=== PATIENT | male | born 1975 ===

== ENCOUNTER 2016-11-25 08:20 | Day surgery (SDC) | payer OTHER ==
[2016-11-20 16:09] VITALS: BMI 31.7
[2016-11-25] MEDS ORDERED: Lidocaine 1% Inj (20ml) ONE (09:03)
[2016-11-25] MEDS ORDERED: ceFAZolin IV 1 gm in Dextrose 1 GM/50 ML BAG IVPB ONE (09:03)
[2016-11-25] MEDS ORDERED: Lactated Ringer's 1,000 ML IV ONE (09:15)
[2016-11-25] MEDS ORDERED: Midazolam 2 MG/2 ML VIAL ONE (09:18)
[2016-11-25] MEDS ORDERED: Propofol 10 mg/ml Inj (20 ML) ONE ×2 (09:18→09:33)
[2016-11-25] MEDS ORDERED: Bupivacaine 0.5% Inj(30mL) ONE (09:19)
[2016-11-25] MEDS ORDERED: Bacitracin Ointment 30 GM TUBE ONE (09:56)
[2016-11-25] MEDS ORDERED: HYDROmorphone 0.5 mg/0.5 ml ISec IVP PRN (10:09)
--- NOTE | 2016-11-25 10:31 | PCM.SURG1 ---
Surgeon's Initial Post Op Note - Surgeon's Notes Surgeon: Yandy Copy Messenger: PAU Type of Anesthesia: General Mask Anesthesia Administered By: staff Pre-Operative Diagnosis: VOL.STERILIZATION Operative Findings: NORMAL VAS Post-Operative Diagnosis: VOL.STERILIZATION Operation Performed: BILAT VASECTOMY Specimen/Specimens Removed: 2 VAS Estimated Blood Loss: EBL {In ML}: 0 Blood Products Given: N/A Drains Used: No Drains Post-Op Condition: Good Date of Surgery/Procedure: 11/25/16 Time of Surgery/Procedure: 10:30
[2016-11-25 10:57] VITALS: RESP 18
[2016-11-25 11:27] VITALS: BP 126/75; PULSE 65; TEMP 98; O2SAT 99
--- NOTE | 2016-11-28 16:26 | PCM.OP ---
Operative Report - Operative Report Date of Surgery/Procedure: 11/25/16 Surgeon: Dr. Kebede Pre-Operative Diagnosis: Voluntary sterilization, normal facility Post-Operative Diagnosis: Voluntary sterilization, normal facility Procedure/Operation Description: . Prior to procedure, a detailed informed consent was obtained from the patient. He understands the risks and complications of vasectomy, the possibility of failure to cause infertility, and the other complications. He was brought into the room identified and draped and prepped in the usual manner. He received prophylactic antibiotics, then he was draped and prepped in the usual manner. The three finger method was used to grasp the vas and pull it up towards the skin, and a one inch incision was made perpendicular to the vas and carried down to the subcutaneous tissues. The vas was dissected free of its fibrous attachments, grasped with a clamp, and exteriorized. One inch section of vas was skeletonized, a 3-0 Prolene suture was placed around the proximal and distal ends of the vas, and the section of the vas was removed by cutting it with a knife. It was sent for pathological analysis. The ends of both the proximal and distal sections of the vas were burnt with the Bovie. Proximal end was buried within the vas sheath; was closed with 3-0 Chromic sutures. The distal end was left outside the vas sheath. The skin was then closed with 3-0 chromic sutures in a discontinuous fashion, and the procedure was repeated on the opposite side. Complications: Patient tolerated this procedure well. Discharge & Condition: A dry scrotal dressing was placed on the scrotum.
== END 2016-11-25 11:25 | disposition home or self-care (01) ==
LOC: C.SDS 08:20
PROVIDERS: ATTEND Urology
DX: Z30.2 Encounter for sterilization (principal)
CPT/HCPCS: 55250; 82948; 88302; J0690; J2250; J2704; J3010; J7120